=== PATIENT | female | born 1980 | race Caucasian/White ===

== ENCOUNTER 2025-02-08 08:21 | Emergency (ER) | payer OTHER ==
[~2025-02-08] VITALS: Ht 167.6 cm; Wt 99.8 kg
[2025-02-08 08:45] LABS: BASOPHILS ABSOLUTE AUTO 0.03 K/mm3 (0.00-0.23); BASOPHILS PERCENT AUTO 0 % (0-2); EOSINOPHILS ABSOLUTE AUTO 0.04 K/mm3 (0.00-0.68); EOSINOPHILS PERCENT AUTO 1 % (0-6); Hematocrit 26.7 % (33.0-51.0); Hemoglobin 9.5 g/dL (11.5-16.0); IMMATURE GRAN ABSOLUTE AUTO 0.09 K/mm3 (0.00-0.10); IMMATURE GRAN PERCENT AUTO 1 % (0-1); LYMPHOCYTES ABSOLUTE AUTO 0.72 K/mm3 (0.84-5.20); LYMPHOCYTES PERCENT AUTO 8 % (21-46); MONOCYTES ABSOLUTE AUTO 0.84 K/mm3 (0.16-1.47); MONOCYTES PERCENT AUTO 10 % (4-13); Mean Corpuscular HGB Conc 35.6 g/dL (31.5-36.5); Mean Corpuscular Volume 95 fL (80-100); NEUTROPHILS ABSOLUTE AUTO 7.08 K/mm3 (1.96-9.15); NEUTROPHILS PERCENT AUTO 81 % (41-73); NRBC ABSOLUTE 0.02 K/mm3 (0.00-0.02); NRBC Auto 0.2 /100 WBC (0.0-0.2); Platelet Count 141 K/mm3 (150-400); RDW Coefficient Variation 19.4 % (11.7-14.2); RDW Standard Deviation 65.9 fL (35.1-46.3)
[2025-02-08 09:03] LABS: Alanine Aminotransfer (ALT/SGP 57.0 U/L (12-78); Albumin, Blood 1.4 g/dL (3.4-5.0); Albumin/Globulin Ratio 0.2 (0.8-1.8); Anion Gap 9.0 mmol/L (3-11); Aspartate Aminotrans (AST/SGOT 365.0 U/L (12-37); Bilirubin, Total 2.7 mg/dL (0.1-1.0); Blood Urea Nitrogen 3.0 mg/dL (8-24); CO2, Blood 23.0 mmol/L (21-32); Calcium, Blood 7.2 mg/dL (8.5-10.1); Chloride, Blood 107.0 mmol/L (98-108); Creatinine, Blood 0.49 mg/dL (0.40-1.00); Globulin, Blood 5.8 g/dL (2.2-4.0); Glucose, Blood 118.0 mg/dL (70-99); Potassium, Blood 3.6 mmol/L (3.5-5.5); Sodium, Blood 135.0 mmol/L (136-145); Total Protein, Blood 7.2 g/dL (6.4-8.2)
== END 2025-02-08 11:45 | disposition left against medical advice (07) ==
LOC: ER 08:21
PROVIDERS: Emergency Medicine
DX: R07.9 Chest pain, unspecified (principal); R42 Dizziness and giddiness; K62.5 Hemorrhage of anus and rectum; R04.0 Epistaxis; Z53.21 Procedure and treatment not carried out due to patient leaving prior to being seen by health care provider
CPT/HCPCS: 71046; 80053; 84484; 85025

== ENCOUNTER 2025-03-03 10:01 | Emergency (ER) | payer OTHER ==
[~2025-03-03] VITALS: Ht 167.6 cm; Wt 88.5 kg
[~2025-03-03 10:01] MED LIST: AFRIN15 M6; MULVITA PO; TRIPLE ANTIBIO1 EAC1 TOP; VITAMIN B150 MG PO
[2025-03-03] MEDS ORDERED: BACL20 PO (10:48)
[2025-03-03] MEDS ORDERED: Pantoprazole Sodium 40 MG Injection IV ONE (10:55)
[2025-03-03 11:20] LABS: BASOPHILS ABSOLUTE AUTO 0.01 K/mm3 (0.00-0.23); BASOPHILS PERCENT AUTO 0 % (0-2); EOSINOPHILS ABSOLUTE AUTO 0.12 K/mm3 (0.00-0.68); EOSINOPHILS PERCENT AUTO 1 % (0-6); IMMATURE GRAN ABSOLUTE AUTO 0.13 K/mm3 (0.00-0.10); IMMATURE GRAN PERCENT AUTO 1 % (0-1); LYMPHOCYTES ABSOLUTE AUTO 1.18 K/mm3 (0.84-5.20); LYMPHOCYTES PERCENT AUTO 12 % (21-46); MONOCYTES ABSOLUTE AUTO 0.72 K/mm3 (0.16-1.47); MONOCYTES PERCENT AUTO 8 % (4-13); Mean Corpuscular HGB Conc 30.8 g/dL (31.5-36.5); Mean Corpuscular Volume 114 fL (80-100); NEUTROPHILS ABSOLUTE AUTO 7.34 K/mm3 (1.96-9.15); NEUTROPHILS PERCENT AUTO 77 % (41-73); NRBC ABSOLUTE 0.04 K/mm3 (0.00-0.02); NRBC Auto 0.4 /100 WBC (0.0-0.2); Platelet Count 109 K/mm3 (150-400); RDW Coefficient Variation 24.4 % (11.7-14.2); RDW Standard Deviation 98.6 fL (35.1-46.3)
[2025-03-03 11:22] LABS: Prothrombin Time Results 13.7 Sec (9.7-11.5)
[2025-03-03 11:23] LABS: Alanine Aminotransfer (ALT/SGP 79.0 U/L (12-78); Albumin, Blood 1.2 g/dL (3.4-5.0); Albumin/Globulin Ratio 0.3 (0.8-1.8); Anion Gap 9.0 mmol/L (3-11); Aspartate Aminotrans (AST/SGOT 255.0 U/L (12-37); Bilirubin, Total 1.5 mg/dL (0.1-1.0); Blood Urea Nitrogen 11.0 mg/dL (8-24); CO2, Blood 21.0 mmol/L (21-32); Calcium, Blood 7.2 mg/dL (8.5-10.1); Chloride, Blood 110.0 mmol/L (98-108); Creatinine, Blood 0.68 mg/dL (0.40-1.00); Globulin, Blood 4.3 g/dL (2.2-4.0); Glucose, Blood 119.0 mg/dL (70-99); Hemoglobin 3.7 g/dL (11.5-16.0); Potassium, Blood 3.7 mmol/L (3.5-5.5); Sodium, Blood 136.0 mmol/L (136-145); Total Protein, Blood 5.5 g/dL (6.4-8.2)
[2025-03-03 11:24] LABS: Hematocrit 12.0 % (33.0-51.0)
[2025-03-03] MEDS ORDERED: NS 1,000 ML IV SCH (12:30)
== END 2025-03-03 14:48 | disposition short-term general hospital (02) ==
LOC: ER 10:01
PROVIDERS: Emergency Medicine
DX: K70.30 Alcoholic cirrhosis of liver without ascites (principal); F10.10 Alcohol abuse, uncomplicated; D63.8 Anemia in other chronic diseases classified elsewhere; K92.2 Gastrointestinal hemorrhage, unspecified; R74.01 Elevation of levels of liver transaminase levels; D69.6 Thrombocytopenia, unspecified; Z88.0 Allergy status to penicillin; Z79.899 Other long term (current) drug therapy
CPT/HCPCS: 36430; 74174; 80053; 82272; 83605; 84484; 85025; 85610; 86850; 86900; 86901; 86923; 93005; 93010; 96374; 99285-25; J2470; J7030; P9016; Q9967

== ENCOUNTER 2025-03-13 03:54 | Day surgery (SDC) | payer OTHER ==
[2025-03-11 14:35] LABS: BASOPHILS ABSOLUTE AUTO 0.02 K/mm3 (0.00-0.23); BASOPHILS PERCENT AUTO 1 % (0-2); EOSINOPHILS ABSOLUTE AUTO 0.15 K/mm3 (0.00-0.68); EOSINOPHILS PERCENT AUTO 4 % (0-6); Hematocrit 21.1 % (33.0-51.0); Hemoglobin 6.7 g/dL (11.5-16.0); IMMATURE GRAN ABSOLUTE AUTO 0.01 K/mm3 (0.00-0.10); IMMATURE GRAN PERCENT AUTO 0 % (0-1); LYMPHOCYTES ABSOLUTE AUTO 0.86 K/mm3 (0.84-5.20); LYMPHOCYTES PERCENT AUTO 20 % (21-46); MONOCYTES ABSOLUTE AUTO 0.56 K/mm3 (0.16-1.47); MONOCYTES PERCENT AUTO 13 % (4-13); Mean Corpuscular HGB Conc 31.8 g/dL (31.5-36.5); Mean Corpuscular Volume 102 fL (80-100); NEUTROPHILS ABSOLUTE AUTO 2.69 K/mm3 (1.96-9.15); NEUTROPHILS PERCENT AUTO 63 % (41-73); NRBC ABSOLUTE 0.00 K/mm3 (0.00-0.02); NRBC Auto 0.0 /100 WBC (0.0-0.2); Platelet Count 102 K/mm3 (150-400); RDW Coefficient Variation 23.9 % (11.7-14.2); RDW Standard Deviation 87.0 fL (35.1-46.3)
[2025-03-13] VITALS (8 sets, daily range): BP systolic 81–111; BP diastolic 48–71
[~2025-03-13 03:54] MED LIST changes: +BACL20 PO
[2025-03-13] MEDS ORDERED: NS 250 ML IV SCH (06:00)
[2025-03-13] MEDS ORDERED: Furosemide 10 MG / ML 2ML Vial IV SCH (06:00)
== END 2025-03-13 11:32 | disposition home or self-care (01) ==
LOC: ATC 03:54 → EDSTATUS 03-03 12:30 → LAB FUT 03-03 12:30
PROVIDERS: Internal Medicine
DX: D50.9 Iron deficiency anemia, unspecified (principal); K74.60 Unspecified cirrhosis of liver; I85.10 Secondary esophageal varices without bleeding
CPT/HCPCS: 36415; 36430; 85025; 86850; 86900; 86901; 86923; 96365; J1938; J7050; P9016

== ENCOUNTER 2025-03-24 17:28 | Inpatient (IN) | payer OTHER ==
[~2025-03-24] VITALS: Ht 167.6 cm; Wt 92.1 kg
[2025-03-24 19:17] LABS: BASOPHILS ABSOLUTE AUTO 0.02 K/mm3 (0.00-0.23); BASOPHILS PERCENT AUTO 1 % (0-2); EOSINOPHILS ABSOLUTE AUTO 0.09 K/mm3 (0.00-0.68); EOSINOPHILS PERCENT AUTO 2 % (0-6); Hematocrit 27.7 % (33.0-51.0); Hemoglobin 8.9 g/dL (11.5-16.0); IMMATURE GRAN ABSOLUTE AUTO 0.01 K/mm3 (0.00-0.10); IMMATURE GRAN PERCENT AUTO 0 % (0-1); LYMPHOCYTES ABSOLUTE AUTO 0.72 K/mm3 (0.84-5.20); LYMPHOCYTES PERCENT AUTO 17 % (21-46); MONOCYTES ABSOLUTE AUTO 0.33 K/mm3 (0.16-1.47); MONOCYTES PERCENT AUTO 8 % (4-13); Mean Corpuscular HGB Conc 32.1 g/dL (31.5-36.5); Mean Corpuscular Volume 97 fL (80-100); NEUTROPHILS ABSOLUTE AUTO 3.12 K/mm3 (1.96-9.15); NEUTROPHILS PERCENT AUTO 73 % (41-73); NRBC ABSOLUTE 0.00 K/mm3 (0.00-0.02); NRBC Auto 0.0 /100 WBC (0.0-0.2); Platelet Count 97 K/mm3 (150-400); RDW Coefficient Variation 21.6 % (11.7-14.2); RDW Standard Deviation 76.2 fL (35.1-46.3)
[2025-03-24 19:43] LABS: Alanine Aminotransfer (ALT/SGP 32.0 U/L (12-78); Albumin, Blood 1.4 g/dL (3.4-5.0); Albumin/Globulin Ratio 0.3 (0.8-1.8); Anion Gap 7.0 mmol/L (3-11); Aspartate Aminotrans (AST/SGOT 115.0 U/L (12-37); Bilirubin, Total 1.5 mg/dL (0.1-1.0); Blood Urea Nitrogen 7.0 mg/dL (8-24); CO2, Blood 24.0 mmol/L (21-32); Calcium, Blood 7.4 mg/dL (8.5-10.1); Chloride, Blood 109.0 mmol/L (98-108); Creatinine, Blood 0.63 mg/dL (0.40-1.00); Globulin, Blood 4.7 g/dL (2.2-4.0); Glucose, Blood 132.0 mg/dL (70-99); Potassium, Blood 3.4 mmol/L (3.5-5.5); Sodium, Blood 137.0 mmol/L (136-145); Total Protein, Blood 6.1 g/dL (6.4-8.2)
[2025-03-24 20:16] LABS: pH Blood Venous 7.41 (7.34-7.37)
[2025-03-24 20:32] LABS: Prothrombin Time Results 15.6 Sec (9.7-11.5)
[2025-03-24] MEDS ORDERED: FLU VACC TS2025-26(6MOS UP)/PF 45 MCG/0.5 ML SYRINGE IM SCH (20:45)
[2025-03-24] MEDS ORDERED: Ondansetron HCl 2 MG / ML 2ML Vial IV PRN (20:50)
[2025-03-24 21:06] LABS: Magnesium, Blood 2.0 mg/dL (1.6-2.4)
[2025-03-24 22:23] VITALS: BP 105/57
[2025-03-25 00:03] VITALS: BP 136/71
[2025-03-25 03:55] VITALS: BP 110/58
[2025-03-25 05:27] LABS: Anion Gap 6.0 mmol/L (3-11); Blood Urea Nitrogen 7.0 mg/dL (8-24); CO2, Blood 24.0 mmol/L (21-32); Calcium, Blood 7.0 mg/dL (8.5-10.1); Chloride, Blood 112.0 mmol/L (98-108); Creatinine, Blood 0.64 mg/dL (0.40-1.00); Glucose, Blood 93.0 mg/dL (70-99); Magnesium, Blood 1.8 mg/dL (1.6-2.4); Potassium, Blood 3.9 mmol/L (3.5-5.5); Sodium, Blood 138.0 mmol/L (136-145)
--- NOTE | 2025-03-25 06:02 | NUR ---
SHIFT SUMMARY PT ARRIVED FROM THE ER AROUND 2229. ORIENTED TO ROOM. SIGNIFICANT OTHER AT BEDSIDE AND STAYED DURING THE NIGHT. A&Ox4. PT DID HAVE ONE OUTBURST AT START OF SHIFT, PT YELLED AT S/O STATING, "SHUT UP, I HATE YOU!", "WHY YOU AT MY 6?". PER S/O, PT HAS HAD SIMILAR, WORSENING OUTBURTS RECENTLY. HOWEVER, PT HAS BEEN PLEASANT AND COOPERATIVE WITH STAFF. NO C/O PAIN. PT GIVEN LASIX IN ER SO PT UP TO BATHROOM FREQUENTLY. PT DID HAVE SOME N/V WHEN FIRST COMING TO ROOM AND WAS MEDICATED WITH GOOD EFFECT. IND IN ROOM. VSS. BED IN LOWEST POSITION AND CALL LIGHT IN REACH.
[2025-03-25 06:19] LABS: BASOPHILS ABSOLUTE AUTO 0.02 K/mm3 (0.00-0.23); BASOPHILS PERCENT AUTO 0 % (0-2); EOSINOPHILS ABSOLUTE AUTO 0.08 K/mm3 (0.00-0.68); EOSINOPHILS PERCENT AUTO 1 % (0-6); Hematocrit 22.5 % (33.0-51.0); Hemoglobin 7.5 g/dL (11.5-16.0); IMMATURE GRAN ABSOLUTE AUTO 0.02 K/mm3 (0.00-0.10); IMMATURE GRAN PERCENT AUTO 0 % (0-1); LYMPHOCYTES ABSOLUTE AUTO 0.94 K/mm3 (0.84-5.20); LYMPHOCYTES PERCENT AUTO 17 % (21-46); MONOCYTES ABSOLUTE AUTO 0.63 K/mm3 (0.16-1.47); MONOCYTES PERCENT AUTO 11 % (4-13); Mean Corpuscular HGB Conc 33.3 g/dL (31.5-36.5); Mean Corpuscular Volume 93 fL (80-100); NEUTROPHILS ABSOLUTE AUTO 3.95 K/mm3 (1.96-9.15); NEUTROPHILS PERCENT AUTO 70 % (41-73); NRBC ABSOLUTE 0.00 K/mm3 (0.00-0.02); NRBC Auto 0.0 /100 WBC (0.0-0.2); Platelet Count 84 K/mm3 (150-400); RDW Coefficient Variation 21.2 % (11.7-14.2); RDW Standard Deviation 72.1 fL (35.1-46.3)
[2025-03-25 07:59] VITALS: BP 103/59
[2025-03-25 13:30] VITALS: BP 109/63
[2025-03-25 14:24] LABS: Hematocrit 24.8 % (33.0-51.0); Hemoglobin 7.9 g/dL (11.5-16.0)
--- NOTE | 2025-03-25 17:12 | NUR ---
SUMMARY NO ACUTE CHANGES THIS SHIFT. PT EDEMA IN BLE SHOWS SOME IMPROVEMENT THIS SHIFT. STOCKINGS AND SCDS IN PLACE. NO VISIBLE BLEEDING NOTED THIS SHIFT. PT PREMEDICATED WITH ZOFRAN DUE TO NAUSEA WITH MEDICAITONS. PT CALLS APPROPRIATLY. PARTNER AT BEDSIDE. INDEPENDENT IN THE ROOM. IV DIURETICS CONTINUED. 1800 CC FLUID RESTRICTION. STRICT I/O.
[2025-03-25] MEDS ORDERED: CARV6.25 PO (17:58)
[2025-03-25] MEDS ORDERED: SPIR25 PO (17:58)
[2025-03-25] MEDS ORDERED: LACT10SY PO (17:59)
[2025-03-25] MEDS ORDERED: PANT40 PO (18:00)
[2025-03-25] MEDS ORDERED: OMEP20ER PO (18:00)
[2025-03-25 18:27] LABS: Hematocrit 25.7 % (33.0-51.0); Hemoglobin 8.4 g/dL (11.5-16.0)
[2025-03-25 19:31] VITALS: BP 107/59
[2025-03-25 23:55] LABS: Hematocrit 22.7 % (33.0-51.0); Hemoglobin 7.6 g/dL (11.5-16.0)
[2025-03-26] VITALS (7 sets, daily range): BP systolic 107–122; BP diastolic 49–71
--- NOTE | 2025-03-26 05:34 | NUR ---
SHIFT SUMMARY PT A&Ox4. COOPERATIVE WITH CARE BUT PT APPEARS WITHDRAWN. KAILYN HOSE USED DURING THE NIGHT AND PT ASKED FOR A BREAK FROM SCD's AROUND 0100. AT SOME POINT, THE HAT WAS REMOVED FROM THE TOLIET AND PT REMINDED ABOUT THE NEED FOR ACURATE I&O MEASURMENTS. NO C/O PAIN OR NAUSEA. VSS. PT SR IN THE 70's ON TELE. IND IN ROOM. BED IN LOWEST POSITION AND CALL LIGHT IN REACH.
[2025-03-26 06:59] LABS: BASOPHILS ABSOLUTE AUTO 0.02 K/mm3 (0.00-0.23); BASOPHILS PERCENT AUTO 0 % (0-2); EOSINOPHILS ABSOLUTE AUTO 0.10 K/mm3 (0.00-0.68); EOSINOPHILS PERCENT AUTO 2 % (0-6); Hematocrit 22.8 % (33.0-51.0); Hemoglobin 7.5 g/dL (11.5-16.0); IMMATURE GRAN ABSOLUTE AUTO 0.03 K/mm3 (0.00-0.10); IMMATURE GRAN PERCENT AUTO 1 % (0-1); LYMPHOCYTES ABSOLUTE AUTO 0.93 K/mm3 (0.84-5.20); LYMPHOCYTES PERCENT AUTO 18 % (21-46); MONOCYTES ABSOLUTE AUTO 0.59 K/mm3 (0.16-1.47); MONOCYTES PERCENT AUTO 11 % (4-13); Mean Corpuscular HGB Conc 32.9 g/dL (31.5-36.5); Mean Corpuscular Volume 94 fL (80-100); NEUTROPHILS ABSOLUTE AUTO 3.56 K/mm3 (1.96-9.15); NEUTROPHILS PERCENT AUTO 68 % (41-73); NRBC ABSOLUTE 0.00 K/mm3 (0.00-0.02); NRBC Auto 0.0 /100 WBC (0.0-0.2); Platelet Count 87 K/mm3 (150-400); RDW Coefficient Variation 21.3 % (11.7-14.2); RDW Standard Deviation 71.7 fL (35.1-46.3)
--- NOTE | 2025-03-26 07:14 | NUR ---
PER TELE, PT HAD 8 BEAT RUN OF WIDE SVT. PT WAS ASYMPTOMATIC. HOSPITALIST NOTIFIED AND ORDER GIVEN FOR A CHEM 8 AND MAG DRAW.
[2025-03-26 07:45] LABS: Alanine Aminotransfer (ALT/SGP 25.0 U/L (12-78); Albumin, Blood 1.1 g/dL (3.4-5.0); Albumin/Globulin Ratio 0.3 (0.8-1.8); Anion Gap 8.0 mmol/L (3-11); Aspartate Aminotrans (AST/SGOT 92.0 U/L (12-37); Bilirubin, Total 1.2 mg/dL (0.1-1.0); Blood Urea Nitrogen 7.0 mg/dL (8-24); CO2, Blood 23.0 mmol/L (21-32); Calcium, Blood 7.1 mg/dL (8.5-10.1); Chloride, Blood 110.0 mmol/L (98-108); Creatinine, Blood 0.67 mg/dL (0.40-1.00); Globulin, Blood 4.1 g/dL (2.2-4.0); Glucose, Blood 91.0 mg/dL (70-99); Potassium, Blood 3.3 mmol/L (3.5-5.5); Sodium, Blood 138.0 mmol/L (136-145); Total Protein, Blood 5.2 g/dL (6.4-8.2)
[2025-03-26 13:16] LABS: Hematocrit 22.2 % (33.0-51.0); Hemoglobin 7.5 g/dL (11.5-16.0)
[2025-03-26] MEDS ORDERED: Magnesium Sulf 2 GM/Water 50ML 50 ML IV STA (16:09)
--- NOTE | 2025-03-26 17:23 | NUR ---
PT IS A/OX4. PLEASANT AND COOPERATIVE WITH CARE. STRICT Is/Os. SR IN THE 70s ON TELE. PT INSTRUCTED TO CALL STAFF PRIOR TO EMPTYING HER HAT, PT VERBALIZED UNDERSTANDING. CONT IV LASIX, MAG INFUSING PER EMAR. PT ALSO ENCOURAGED TO ELEVATE LEs. COMPRESSION STOCKINGS IN PLACE. SHE IS INDEPENDENT IN ROOM. CURRENTLY RESTING IN BED, CHEST RISING AND FALLING SYMMETRICALLY. CALL LIGHT IN REACH. NO ACUTE NEEDS AT THIS TIME.
[2025-03-26 18:19] LABS: Anion Gap 8.0 mmol/L (3-11); Blood Urea Nitrogen 6.0 mg/dL (8-24); CO2, Blood 25.0 mmol/L (21-32); Calcium, Blood 7.2 mg/dL (8.5-10.1); Chloride, Blood 107.0 mmol/L (98-108); Creatinine, Blood 0.69 mg/dL (0.40-1.00); Glucose, Blood 103.0 mg/dL (70-99); Potassium, Blood 3.1 mmol/L (3.5-5.5); Sodium, Blood 137.0 mmol/L (136-145)
[2025-03-27 04:14] VITALS: BP 117/56
[2025-03-27 05:00] LABS: BASOPHILS ABSOLUTE AUTO 0.02 K/mm3 (0.00-0.23); BASOPHILS PERCENT AUTO 0 % (0-2); EOSINOPHILS ABSOLUTE AUTO 0.08 K/mm3 (0.00-0.68); EOSINOPHILS PERCENT AUTO 1 % (0-6); Hematocrit 22.4 % (33.0-51.0); Hemoglobin 7.6 g/dL (11.5-16.0); IMMATURE GRAN ABSOLUTE AUTO 0.02 K/mm3 (0.00-0.10); IMMATURE GRAN PERCENT AUTO 0 % (0-1); LYMPHOCYTES ABSOLUTE AUTO 0.74 K/mm3 (0.84-5.20); LYMPHOCYTES PERCENT AUTO 12 % (21-46); MONOCYTES ABSOLUTE AUTO 0.46 K/mm3 (0.16-1.47); MONOCYTES PERCENT AUTO 8 % (4-13); Mean Corpuscular HGB Conc 33.9 g/dL (31.5-36.5); Mean Corpuscular Volume 92 fL (80-100); NEUTROPHILS ABSOLUTE AUTO 4.73 K/mm3 (1.96-9.15); NEUTROPHILS PERCENT AUTO 78 % (41-73); NRBC ABSOLUTE 0.00 K/mm3 (0.00-0.02); NRBC Auto 0.0 /100 WBC (0.0-0.2); Platelet Count 89 K/mm3 (150-400); RDW Coefficient Variation 21.2 % (11.7-14.2); RDW Standard Deviation 70.4 fL (35.1-46.3)
--- NOTE | 2025-03-27 05:19 | NUR ---
SHIFT SUMMARY PT A&Ox4. FLAT EFFECT. CONTINUING TO DIURESE. PT DECLINED SCD's WHEN ASKED SEVERAL TIMES DURING THE NIGHT, STATED SHE WOULD WEAR THEM IN THE MORNING. EDEMA IN BLE HAS IMPROVED. AROUND 0200 PT C/O SORE THROAT AND EARS AND GENERALLY NOT FEELING WELL. VSS. HOSPITALIST NOTIFIED AND ORDER FOR TYLENOL GIVEN. IND IN ROOM. BED IN LOWEST POSITION AND CALL LIGHT IN REACH.
[2025-03-27 05:27] LABS: Alanine Aminotransfer (ALT/SGP 27.0 U/L (12-78); Albumin, Blood 1.1 g/dL (3.4-5.0); Albumin/Globulin Ratio 0.2 (0.8-1.8); Anion Gap 9.0 mmol/L (3-11); Aspartate Aminotrans (AST/SGOT 103.0 U/L (12-37); Bilirubin, Total 1.1 mg/dL (0.1-1.0); Blood Urea Nitrogen 7.0 mg/dL (8-24); CO2, Blood 23.0 mmol/L (21-32); Calcium, Blood 6.7 mg/dL (8.5-10.1); Chloride, Blood 107.0 mmol/L (98-108); Creatinine, Blood 0.71 mg/dL (0.40-1.00); Globulin, Blood 4.4 g/dL (2.2-4.0); Glucose, Blood 100.0 mg/dL (70-99); Potassium, Blood 3.4 mmol/L (3.5-5.5); Sodium, Blood 136.0 mmol/L (136-145); Total Protein, Blood 5.5 g/dL (6.4-8.2)
[2025-03-27 07:28] VITALS: BP 107/56
[2025-03-27 14:16] VITALS: BP 90/51
--- NOTE | 2025-03-27 15:02 | NUR ---
PATIENT BECAME VERBALLY AGRESSIVE TOWARDS SPOUSE, SHE LEFT. SPOUSE REPORTS THAT PATIENT HITS HER OCCASIONALLY. PATIENT BECOMING VERBALLY AGGRESSIVE TOWARD NURSE. SECURITY AND CHARGE NOTIFIED FOR POTENTIAL ESCALATION.
--- NOTE | 2025-03-27 16:17 | NUR ---
SHIFT SUMMARY PATIENT INDEPENDENT IN ROOM THIS SHIFT. HAD EPISODE OF VERBALLY ABUSING STAFF AND S/O, SEE OTHER NOTE. PATIENT REPORTS FEELING LIKE HER ABDOMEN IS "GETTING FULL" AGAIN, DOC AWARE. POTASSIUM REPLACED THIS AM. TOLERATED WELL. ABLE TO MAKE NEEDS KNOWN. CALL LIGHT IN REACH.
[2025-03-27 19:26] VITALS: BP 104/43
[2025-03-27 23:24] VITALS: BP 94/56
[2025-03-28 04:44] VITALS: BP 98/54
--- NOTE | 2025-03-28 05:49 | NUR ---
Rn shift summary: Patient is alert and oriented. She has been cooperative all shift. She states she has been restless on and off. Pt c/o pressure and "spongy" feeling in abdomen. Abdomen is rounded and firm. Bowel tones hypo active. Pt has some trace edema to lower legs. Gab hose on. Medicated x1 with tylenol at beginning of shift and zofran for nausia. She has had no further complaints. She just states concern for posible future bleeding. No signs of bleeding this shift. BP is stable with map above 65. S.O. at bedside. Pt Ind. to BR. Call light in reach. Will continue to monitor.
[2025-03-28 07:17] VITALS: BP 111/70
[2025-03-28 08:18] LABS: BASOPHILS ABSOLUTE AUTO 0.03 K/mm3 (0.00-0.23); BASOPHILS PERCENT AUTO 1 % (0-2); EOSINOPHILS ABSOLUTE AUTO 0.11 K/mm3 (0.00-0.68); EOSINOPHILS PERCENT AUTO 2 % (0-6); Hematocrit 25.5 % (33.0-51.0); Hemoglobin 8.5 g/dL (11.5-16.0); IMMATURE GRAN ABSOLUTE AUTO 0.02 K/mm3 (0.00-0.10); IMMATURE GRAN PERCENT AUTO 0 % (0-1); LYMPHOCYTES ABSOLUTE AUTO 0.71 K/mm3 (0.84-5.20); LYMPHOCYTES PERCENT AUTO 13 % (21-46); MONOCYTES ABSOLUTE AUTO 0.39 K/mm3 (0.16-1.47); MONOCYTES PERCENT AUTO 7 % (4-13); Mean Corpuscular HGB Conc 33.3 g/dL (31.5-36.5); Mean Corpuscular Volume 94 fL (80-100); NEUTROPHILS ABSOLUTE AUTO 4.08 K/mm3 (1.96-9.15); NEUTROPHILS PERCENT AUTO 76 % (41-73); NRBC ABSOLUTE 0.00 K/mm3 (0.00-0.02); NRBC Auto 0.0 /100 WBC (0.0-0.2); Platelet Count 92 K/mm3 (150-400); RDW Coefficient Variation 21.4 % (11.7-14.2); RDW Standard Deviation 71.9 fL (35.1-46.3)
[2025-03-28 08:34] LABS: Alanine Aminotransfer (ALT/SGP 27.0 U/L (12-78); Albumin, Blood 1.2 g/dL (3.4-5.0); Albumin/Globulin Ratio 0.2 (0.8-1.8); Anion Gap 8.0 mmol/L (3-11); Aspartate Aminotrans (AST/SGOT 104.0 U/L (12-37); Bilirubin, Total 1.1 mg/dL (0.1-1.0); Blood Urea Nitrogen 7.0 mg/dL (8-24); CO2, Blood 26.0 mmol/L (21-32); Calcium, Blood 7.2 mg/dL (8.5-10.1); Chloride, Blood 107.0 mmol/L (98-108); Creatinine, Blood 0.77 mg/dL (0.40-1.00); Globulin, Blood 4.8 g/dL (2.2-4.0); Glucose, Blood 93.0 mg/dL (70-99); Potassium, Blood 3.5 mmol/L (3.5-5.5); Sodium, Blood 137.0 mmol/L (136-145); Total Protein, Blood 6.0 g/dL (6.4-8.2)
--- NOTE | 2025-03-28 10:14 | NUR ---
PER DR WHITMAN GIVE ONLY 40MEQ OF POTASSIUM THIS AM.
--- NOTE | 2025-03-28 14:08 | NUR ---
CALLLED DR WHITMAN FOR CLARIFICATION ON LASIX 40MG SCHEDULED DOSE FOR 1400. BP 100/59, HR 56, MAP 71. PER DR WHITMAN GIVEN LASIX SCHEDULED DOSE.
[2025-03-28] MEDS ORDERED: FURO40 PO (15:09)
[2025-03-28 16:03] VITALS: BP 115/73
--- NOTE | 2025-03-28 16:57 | NUR ---
DISCHARGE INSTRUCTIONS REVIEWED WITH PATIENT ALL QUESTIONS ANSWERED. NEW PRECRIPTIONS TO BE PICKED UP AT [facility] PT TO CALL PCP'S OFFICE AND SCHEDULE FOLLOW UP APPT IN 3-5 DAYS AND CONTINUE TREATMENT AT [facility]. PT ASSISTED TO FRONT DOOR VIA WHEELCHAIR. PT ALERT AND ORIENTED AT TIME OF DISCHARGE.
== END 2025-03-28 16:35 | disposition home or self-care (01) | DRG 433 ==
LOC: ER 17:28 → MEDS 17:29
PROVIDERS: Emergency Medicine; Nurse Practitioner Acute Care; Student in an Organized Health Care Education/Training Program; ADMIT Internal Medicine
DX: K70.31 Alcoholic cirrhosis of liver with ascites (principal); I85.10 Secondary esophageal varices without bleeding; K76.6 Portal hypertension; E87.70 Fluid overload, unspecified; D64.9 Anemia, unspecified; I95.9 Hypotension, unspecified; E87.6 Hypokalemia; D69.6 Thrombocytopenia, unspecified; F10.21 Alcohol dependence, in remission; R16.1 Splenomegaly, not elsewhere classified; Z88.0 Allergy status to penicillin
CPT/HCPCS: 36415; 71045; 76705; 80048; 80053; 81025; 82140; 82803; 83735; 84484; 85014; 85018; 85025; 85610; 85730; 87086; 93005; 93010; 96374; 96375; 96376; 99284-25; A9270; G0378; J1938; J2405; J3475

== ENCOUNTER 2025-04-18 00:13 | Emergency (ER) | payer OTHER ==
[~2025-04-18] VITALS: Ht 165.1 cm; Wt 77.1 kg
[~2025-04-18 00:13] MED LIST changes: +CARV6.25 PO; +FURO40 PO; +LACT10SY PO; +OMEP20ER PO; +PANT40 PO; +SPIR25 PO
[2025-04-18 01:25] LABS: BASOPHILS ABSOLUTE AUTO 0.02 K/mm3 (0.00-0.23); BASOPHILS PERCENT AUTO 0 % (0-2); EOSINOPHILS ABSOLUTE AUTO 0.16 K/mm3 (0.00-0.68); EOSINOPHILS PERCENT AUTO 2 % (0-6); Hematocrit 24.7 % (33.0-51.0); Hemoglobin 8.4 g/dL (11.5-16.0); Mean Corpuscular HGB Conc 34.0 g/dL (31.5-36.5); Mean Corpuscular Volume 91 fL (80-100); NRBC ABSOLUTE 0.00 K/mm3 (0.00-0.02); NRBC Auto 0.0 /100 WBC (0.0-0.2); Platelet Count 94 K/mm3 (150-400); RDW Coefficient Variation 21.5 % (11.7-14.2); RDW Standard Deviation 71.0 fL (35.1-46.3)
[2025-04-18 01:29] LABS: IMMATURE GRAN ABSOLUTE AUTO 0.05 K/mm3 (0.00-0.10); IMMATURE GRAN PERCENT AUTO 1 % (0-1); LYMPHOCYTES ABSOLUTE AUTO 0.79 K/mm3 (0.84-5.20); LYMPHOCYTES PERCENT AUTO 12 % (21-46); MONOCYTES ABSOLUTE AUTO 0.70 K/mm3 (0.16-1.47); MONOCYTES PERCENT AUTO 10 % (4-13); NEUTROPHILS ABSOLUTE AUTO 5.07 K/mm3 (1.96-9.15); NEUTROPHILS PERCENT AUTO 75 % (41-73)
[2025-04-18 01:41] LABS: Alanine Aminotransfer (ALT/SGP 21.0 U/L (12-78); Albumin, Blood 1.3 g/dL (3.4-5.0); Albumin/Globulin Ratio 0.3 (0.8-1.8); Anion Gap 10.0 mmol/L (3-11); Aspartate Aminotrans (AST/SGOT 105.0 U/L (12-37); Bilirubin, Total 1.3 mg/dL (0.1-1.0); Blood Urea Nitrogen 7.0 mg/dL (8-24); CO2, Blood 20.0 mmol/L (21-32); Calcium, Blood 7.0 mg/dL (8.5-10.1); Chloride, Blood 106.0 mmol/L (98-108); Creatinine, Blood 0.8 mg/dL (0.40-1.00); Globulin, Blood 4.7 g/dL (2.2-4.0); Glucose, Blood 100.0 mg/dL (70-99); Potassium, Blood 3.4 mmol/L (3.5-5.5); Sodium, Blood 133.0 mmol/L (136-145); Total Protein, Blood 6.0 g/dL (6.4-8.2)
[2025-04-18 02:30] LABS: Prothrombin Time Results 17.3 Sec (9.7-11.5)
[2025-04-18 03:38] LABS: Source, Urine Clean Catch
[2025-04-18 03:44] LABS: Glucose Qualitative, Urine Neg (Neg); Ketones, Urine Neg (Neg); Leukocyte Esterase, Urine 2+ (Neg); Protein, Urine 3+ (Neg); Specific Gravity, Urine 1.020 (1.003-1.022); Urobilinogen, Urine 2+ (Normal)
[2025-04-18 03:51] LABS: Bilirubin, Urine 2+ (Neg); Color, Urine Amber (P-Yellow)
[2025-04-18 03:52] LABS: Red Blood Cells, Urine 0-2 /hpf (0-2)
[2025-04-18] MEDS ORDERED: CEPH500 PO (04:27)
== END 2025-04-18 04:32 | disposition home or self-care (01) ==
LOC: ER 00:13
PROVIDERS: Student in an Organized Health Care Education/Training Program
DX: R21 Rash and other nonspecific skin eruption (principal); L29.9 Pruritus, unspecified; N39.0 Urinary tract infection, site not specified; K74.60 Unspecified cirrhosis of liver; E87.6 Hypokalemia; E87.1 Hypo-osmolality and hyponatremia; D53.9 Nutritional anemia, unspecified; Z88.0 Allergy status to penicillin; Z79.899 Other long term (current) drug therapy
CPT/HCPCS: 80053; 81001; 85025; 85610; 85730; 87086; 99283; A9270